=== PATIENT | male | born 1975 | race African-American/Black ===

== ENCOUNTER 2020-03-03 20:59 | Emergency (ER) | payer SELFPAY ==
[~2020-03-03] VITALS: Ht 185.4 cm; Wt 72.2 kg
[2020-03-03] MEDS ORDERED: ZIPRASIDONE 20 MG INJ IM ONE ×2 (21:13→21:30)
--- NOTE | 2020-03-03 21:20 | NUR ---
PT EXTREMLY AGITATED, FLAILING ON GURNEY, IN 4 PT RESTRAINTS, ERP UPDATED, PT MEDICATED PER MAR. MONITORS IN PLACE, SIDERAILS UP X2, IV SITE STARTED BY RACHEAL KHAN
[2020-03-03] MEDS: PLEASE ENTER ALLERGIES MC SCH (21:24)
[2020-03-03 21:34] LABS: MEAN CORPUSCULAR HEMOGLOBIN 26.7 pg (27.5-34.5); MEAN CORPUSCULAR HGB CONC 32.1 g/dL (33.2-36.2); MEAN CORPUSCULAR VOLUME 83.1 fL (81-97); MEAN PLATELET VOLUME 9.3 fL (7.4-10.4); PLATELET COUNT 283 x10^3/uL (130-400); RED BLOOD COUNT 5.16 x10^6/uL (4.38-5.82); RED CELL DISTRIBUTION WIDTH 15.4 % (9.4-14.8)
[2020-03-03 21:37] LABS: ALANINE AMINOTRANSFERASE 20 U/L (12-78); ALBUMIN 3.8 g/dL (3.4-5.0); ANION GAP 6 mmol/L (5-15); CALCIUM 9.5 mg/dL (8.5-10.1); CHLORIDE 105 mmol/L (98-107); CREATININE 0.97 mg/dL (0.7-1.3); SALICYLATE LEVEL 2.9 mg/dL (2.8-20.0)
[2020-03-03 21:39] LABS: ALKALINE PHOSPHATASE 76 U/L (45-117); BILIRUBIN,TOTAL 0.2 mg/dL (0.2-1.0); TOTAL PROTEIN 7.8 g/dL (6.4-8.2)
[2020-03-03 22:03] LABS: MD YES
[2020-03-03 22:04] LABS: BASOS#(MANUAL) 0.09 x10^3/uL (0-0.1); BASOS% (MANUAL) 1 % (0-1); EOS#(MANUAL) 0.18 x10^3/uL (0.0-0.4); EOS% (MANUAL) 2 % (1-7); LYMPHS% (MANUAL) 27 % (22-44); MONOS#(MANUAL) 0.62 x10^3/uL (0.3-2.7); MONOS% (MANUAL) 7 % (2-9); REACTIVE LYMPHS # (MANUAL) 0.18 x10^3/uL (0-0); REACTIVE LYMPHS % (MANUAL) 2 % (0-0); SEG#(MANUAL) 5.43 x10^3/uL (1.8-6.8); SEGS% (MANUAL) 61 % (42-75)
[2020-03-03 22:06] LABS: ANISOCYTOSIS 1+; OVALOCYTES 1+
[2020-03-03 22:07] LABS: <PLATELET ESTIMATE> ADEQUATE; LARGE PLATELETS 1+
--- NOTE | 2020-03-03 22:30 | NUR ---
PT RESTING CALMLY, NADN, EQUAL CHEST RISE/FALL OBSERVED, ROOM SECURED, PT ON ALL MONITORS, SKIN ASSESSED
--- NOTE | 2020-03-03 23:30 | NUR ---
PT RESTING CALMLY, NAD, RESPIRATIONS EVEN AND UNLABORED, WILL CONTINUE TO MONITOR
--- NOTE | 2020-03-04 00:23 | NUR ---
PT RESTING CALMLY, NAD, EQUAL CHEST RISE/FALL OBSERVED, SECURITY CALLED FOR RESTRAINT REMOVAL X4
--- NOTE | 2020-03-04 02:30 | NUR ---
PT RESTING ON GURNEY, OPENS EYES TO VERBAL RESPONSE, RESPIRATIONS EVEN AND UNLABORED, MONITORS IN PLACE, SIDERAIL SUP X2, CALL LIGHT WITHIN REACH. PT'S FAMILY ON TELEPHONE (MISHA) STATED THAT SHE IS ON HER WAY TO HOSPITAL TO SEE HIM
[2020-03-04 02:55] VITALS: BP 151/84
--- NOTE | 2020-03-04 03:30 | NUR ---
pt alert and answering questions approprietly, up in room getting dressed, awaitng his girlfriend to arrive to hospital for ride home.
== END 2020-03-04 04:01 | disposition home or self-care (01) ==
LOC: ED 21:30
DX: T42.4X1A Poisoning by benzodiazepines, accidental (unintentional), initial encounter (principal); T40.1X1A Poisoning by heroin, accidental (unintentional), initial encounter; F15.129 Other stimulant abuse with intoxication, unspecified; G92 Toxic encephalopathy; R41.82 Altered mental status, unspecified; R94.31 Abnormal electrocardiogram [ECG] [EKG]; Z72.9 Problem related to lifestyle, unspecified; Y92.89 Other specified places as the place of occurrence of the external cause
CPT/HCPCS: 36415; 80053; 80307; 85025; 93005; 96372; 99284; J3486